=== PATIENT | female | born 1975 | race Caucasian/White ===

== ENCOUNTER 2016-08-15 23:43 | Observation (INO) ==
[2016-08-16 00:41] LABS: Bilirubin,Urine Negative (Negative); Blood,Urine Negative (Negative); Clarity,Urine Cloudy (Clear); Color,Urine Yellow (Yellow); Glucose,Urine (UA) Normal (Normal); Ketones,Urine Negative (Negative); Leukocyte Esterase,Urine Negative (Negative); Nitrite,Urine Negative (Negative); Protein,Urine Negative (Neg-Trace); Specific Gravity,Urine 1.028 (1.010-1.025); Urobilinogen,Urine Normal (Normal)
[2016-08-16 00:42] LABS: Bacteria,Urine Few per hpf (None-Few); Hyaline Casts,Urine None Seen per lpf (None-Few); RBC,Urine 0-3 per hpf (0-3); Squamous Epithelial Cell,Urine Many per lpf (None-Few)
[2016-08-16 01:26] LABS: Basophils # 0.1 K/mcL (0.0-0.2); Basophils % 0.7 %; Eosinophils # 0.3 K/mcL (0.0-0.6); Eosinophils % 2.4 %; Hematocrit 28.8 % (35.3-44.9); Hemoglobin 8.5 g/dL (11.5-15.4); Immature Granulocytes % 0.7 % (0-4); Lymphocytes # 3.9 K/mcL (0.6-4.6); Lymphocytes % 32.4 %; Mean Corpuscular HGB Conc 29.5 g/dL (31.6-35.5); Mean Corpuscular Hemoglobin 22.8 pg (28.0-33.3); Mean Corpuscular Volume 77.2 fL (83.0-100.0); Mean Platelet Volume 10.5 fL (9.4-12.4); Monocytes # 0.8 K/mcL (0.0-1.3); Monocytes % 6.5 %; Neutrophils # 6.9 K/mcL (1.6-8.9); Platelet Count 254 K/mcL (140-400); Red Blood Count 3.73 M/mcL (3.82-4.97); Red Cell Distribution Width 18.2 % (11.5-14.5); Segmented Neutrophils % 57.3 %
[2016-08-16 01:41] LABS: Alanine Aminotransferase 13 Units/L (0-55); Albumin 2.9 g/dL (3.5-5.0); Albumin/Globulin Ratio 0.8 (1.1-2.2); Alkaline Phosphatase 48 Units/L (38-126); Amylase 33 Units/L (25-125); Aspartate Amino Transferase 14 Units/L (5-34); BUN/Creatinine Ratio 32 (6-26); Bilirubin,Direct 0.1 mg/dL (0.0-0.5); Bilirubin,Total 0.1 mg/dL (0.2-1.2); Blood Urea Nitrogen 23 mg/dL (7-20); Calcium 8.9 mg/dL (8.6-10.8); Carbon Dioxide 25 mEq/L (19-29); Chloride 103 mEq/L (98-109); Globulin 3.6 g/dL (2.4-3.5); Glucose 126 mg/dL (70-99); Lipase 24 Units/L (8-78); Osmolality,Calculated 297 (280-300); Potassium 3.5 mEq/L (3.5-4.5); Sodium 141 mEq/L (136-145); Total Protein 6.5 g/dL (6.0-8.3); eGFR For African Americans > 60 (> 60); eGFR For Non-African Americans > 60 (> 60)
[2016-08-16] MEDS ORDERED: *HR* HYDROcodone/Acet 5/325 mg TABLET PO ONE (04:10)
--- NOTE | 2016-08-16 04:11 | Emergency Department Note ---
Disposition Clinical Impression: GI bleed, Dizziness Disposition: Admitted As Inpatient Condition: Good Instructions: Gastrointestinal Bleeding (ED) Referrals: NO,PCP [Primary Care Provider] - Forms: ED Satisfaction Letter Time of Disposition: 05:18 Abdominal Pain HPI - General Chief Complaint: ED GI Bleed Stated Complaint: belly pain Time Seen by Provider: 08/16/16 01:52 Source: patient Mode of arrival: private vehicle Limitations: no limitations Nursing Notes Reviewed: Yes Vital Signs Reviewed: Yes - History of Present Illness HPI Narrative: An extremely pleasant 41-year-old female patient presents to the emergency department with complaint of abdominal pain. Patient states that she has had intermittent abdominal pain for the last 2-3 days, and has also noticed dark/ black stools. Patient denies any known history of similar symptoms in the past. She does state that she currently takes approximately 600 mg of ibuprofen daily for chronic neck pain. She does not currently take any blood thinners. She denies any bright red blood per rectum. She denies any history of gastric ulcers. Patient's abdominal pain is epigastric in nature. She described it as aching. She denies any chest pain, shortness of breath. She does state that she has had some intermittent dizziness and lightheadedness. She denies any family history of colon cancer, she also denies having ever had a upper endoscopy or colonoscopy. Pt Subjective Complaint: abdominal pain, other (dark stool) Onset (ago): day(s) Consistency: intermittent Location: epigastric Pain Severity: moderate Pain Scale: 6 Quality: aching Radiation: none Migration to: no migration Improves with: nothing Worsens with: nothing Associated symptoms: Reports: denies other symptoms, melena. Denies: nausea, vomiting, fever, chills, constipation - Related Data Home Medications Medication Instructions Recorded Confirmed Baclofen [Lioresal] 10 mg PO HS 02/23/16 02/23/16 Duloxetine [Cymbalta] 30 mg PO DAILY 02/23/16 02/23/16 Ibuprofen [Motrin] 800 mg PO Q8HR 02/23/16 02/23/16 Oxycodone HCl/Acetaminophen 1 each PO TID 02/23/16 02/23/16 [Percocet 10-325 mg Tablet] Previous Rx's Medication Instructions Recorded Diclofenac Sodium [Voltaren] 50 mg PO Q8HR #30 tablet. 07/02/16 Allergies Allergy/AdvReac Type Severity Reaction Status Date / Time acetaminophen Allergy Hives Verified 02/23/16 14:28 [From Darvocet-N] pregabalin [From Lyrica] Allergy Rash Verified 02/23/16 14:28 propoxyphene Allergy Hives Verified 02/23/16 14:28 [From Darvocet-N] All systems ED: reviewed and negative except as stated. Constitutional: Denies: fever, chills Cardiovascular: Denies: chest pain, palpitations, dyspnea on exertion Respiratory: Denies: cough, dyspnea Gastrointestinal: Reports: abdominal pain, melena. Denies: nausea, vomiting Genitourinary: Denies: urgency, dysuria, frequency Musculoskeletal: Denies: back pain, neck pain Integumentary: Denies: rash, abrasion Neurological: Reports: other (Dizziness, lightheadedness.). Denies: headache Psychiatric: Denies: anxiety, depression, suicidal thoughts, homicidal thoughts Abdominal Pain PMH - Past Medical History Medical history: Reports: arthritis, asthma Female Surgical History: Reports: orthopedic, other Psychiatric history: Reports: no psych history - Social History Smoking status: Former smoker Alcohol use: Reports: none Drug use: Reports: none Physical Exam - General Limitations: no limitations General appearance: alert, in no apparent distress - Head Head exam: atraumatic, normocephalic, normal inspection - Eye Eye exam: Present: normal appearance, PERRL - Neck Neck exam: Present: normal inspection, full ROM, trachea midline - Chest Chest inspection: Present: normal inspection, symmetric chest wall rise - Respiratory Respiratory exam: Present: normal lung sounds bilaterally. Absent: respiratory distress - Cardiovascular Cardiovascular exam: Present: regular rate, normal rhythm, normal heart sounds - Abdominal Exam Abdominal exam: Present: soft, tenderness, normal bowel sounds Abdominal tenderness: Present: epigastrium, mild - Rectal Exam Rectal exam: Present: normal rectal tone, heme (+) stool, black stool, hemorrhoids, other (Performed at the bedside in the presence of natural resources specialist Pita. Patient tolerated the exam well.) - Extremities Exam Extremities exam: Present: normal inspection, full ROM. Absent: tenderness, pedal edema - Expanded Lower Extremity Exam Gait: observed and normal - Back Exam Back exam: Present: normal inspection, full ROM. Absent: tenderness - Neurological Exam Neurological exam: Present: alert, oriented X3 - Psychiatric Psychiatric exam: Present: normal affect, normal mood - Skin Skin exam: Present: warm, dry, intact, normal color Course Vital Signs Temperature 98.7 F 08/16/16 00:00 Pulse Rate 99 08/16/16 00:00 Respiratory Rate 18 08/16/16 00:00 Blood Pressure 117/65 08/16/16 00:00 O2 Sat by Pulse Oximetry 97 08/16/16 00:00 Temperature 98.7 F 08/16/16 00:00 Pulse Rate 99 08/16/16 05:32 Respiratory Rate 18 08/16/16 05:32 Blood Pressure 156/80 08/16/16 05:32 O2 Sat by Pulse Oximetry 97 08/16/16 05:32 Oxygen Delivery Oxygen Delivery Room Air Abdominal Pain - Medical Records Medical records reviewed: Yes I reviewed the patient's medical records. - Lab Data Lab results reviewed: Yes I reviewed the patient's lab results. Result diagrams: 08/16/16 01:20 08/16/16 01:20 Lab Results 08/15/16 08/16/16 08/16/16 Range/Units 23:52 01:20 01:20 WBC 12.0 H (4.3-11.1) K/mcL RBC 3.73 L (3.82-4.97) M/mcL Hgb 8.5 L (11.5-15.4) g/dL Hct 28.8 L (35.3-44.9) % MCV 77.2 L (83.0-100.0) fL MCH 22.8 L (28.0-33.3) pg MCHC 29.5 L (31.6-35.5) g/dL RDW 18.2 H (11.5-14.5) % Plt Count 254 (140-400) K/mcL MPV 10.5 (9.4-12.4) fL Immature Gran % 0.7 (0-4) % Seg Neutrophils % 57.3 % Lymphocytes % 32.4 % Monocytes % 6.5 % Eosinophils % 2.4 % Basophils % 0.7 % Neutrophils # 6.9 (1.6-8.9) K/mcL Lymphocytes # 3.9 (0.6-4.6) K/mcL Monocytes # 0.8 (0.0-1.3) K/mcL Eosinophils # 0.3 (0.0-0.6) K/mcL Basophils # 0.1 (0.0-0.2) K/mcL Sodium 141 (136-145) mEq/L Potassium 3.5 (3.5-4.5) mEq/L Chloride 103 (98-109) mEq/L Carbon Dioxide 25 (19-29) mEq/L BUN 23 H (7-20) mg/dL Creatinine 0.73 (0.57-1.11) mg/dL Est GFR ( Amer) > 60 (> 60) Est GFR (Non-Af Amer) > 60 (> 60) BUN/Creatinine Ratio 32 H (6-26) Glucose 126 H (70-99) mg/dL Calculated Osmolality 297 (280-300) Calcium 8.9 (8.6-10.8) mg/dL Total Bilirubin 0.1 L (0.2-1.2) mg/dL Direct Bilirubin 0.1 (0.0-0.5) mg/dL Indirect Bilirubin 0.0 (0.0-1.2) mg/dL AST 14 (5-34) Units/L ALT 13 (0-55) Units/L Alkaline Phosphatase 48 (38-126) Units/L Serum Total Protein 6.5 (6.0-8.3) g/dL Albumin 2.9 L (3.5-5.0) g/dL Globulin 3.6 H (2.4-3.5) g/dL Albumin/Globulin Ratio 0.8 L (1.1-2.2) Amylase 33 (25-125) Units/L Lipase 24 (8-78) Units/L Urine Color Yellow (Yellow) Urine Clarity Cloudy A (Clear) Urine pH 6.0 (5.0-8.0) pH Units Ur Specific [place] 1.028 H (1.010-1.025) Urine Protein Negative (Neg-Trace) mg/dL Urine Glucose (UA) Normal (Normal) mg/dL Urine Ketones Negative (Negative) mg/dL Urine Blood Negative (Negative) Urine Nitrite Negative (Negative) Urine Bilirubin Negative (Negative) Urine Urobilinogen Normal (Normal) mg/dL Ur Leukocyte Esterase Negative (Negative) Urine Microscopic RBC 0-3 (0-3) per hpf Urine Microscopic WBC 5-15 H (0-3) per hpf Ur Squamous Epith Cells Many H (None-Few) per lpf Urine Bacteria Few (None-Few) per hpf Hyaline Casts None Seen (None-Few) per lpf Ur Culture Indicated? YES A (NO) Stool Occult Blood (Negative) 08/16/16 Range/Units 04:30 WBC (4.3-11.1) K/mcL RBC (3.82-4.97) M/mcL Hgb (11.5-15.4) g/dL Hct (35.3-44.9) % MCV (83.0-100.0) fL MCH (28.0-33.3) pg MCHC (31.6-35.5) g/dL RDW (11.5-14.5) % Plt Count (140-400) K/mcL MPV (9.4-12.4) fL Immature Gran % (0-4) % Seg Neutrophils % % Lymphocytes % % Monocytes % % Eosinophils % % Basophils % % Neutrophils # (1.6-8.9) K/mcL Lymphocytes # (0.6-4.6) K/mcL Monocytes # (0.0-1.3) K/mcL Eosinophils # (0.0-0.6) K/mcL Basophils # (0.0-0.2) K/mcL Sodium (136-145) mEq/L Potassium (3.5-4.5) mEq/L Chloride (98-109) mEq/L Carbon Dioxide (19-29) mEq/L BUN (7-20) mg/dL Creatinine (0.57-1.11) mg/dL Est GFR ( Amer) (> 60) Est GFR (Non-Af Amer) (> 60) BUN/Creatinine Ratio (6-26) Glucose (70-99) mg/dL Calculated Osmolality (280-300) Calcium (8.6-10.8) mg/dL Total Bilirubin (0.2-1.2) mg/dL Direct Bilirubin (0.0-0.5) mg/dL Indirect Bilirubin (0.0-1.2) mg/dL AST (5-34) Units/L ALT (0-55) Units/L Alkaline Phosphatase (38-126) Units/L Serum Total Protein (6.0-8.3) g/dL Albumin (3.5-5.0) g/dL Globulin (2.4-3.5) g/dL Albumin/Globulin Ratio (1.1-2.2) Amylase (25-125) Units/L Lipase (8-78) Units/L Urine Color (Yellow) Urine Clarity (Clear) Urine pH (5.0-8.0) pH Units Ur Specific [place] (1.010-1.025) Urine Protein (Neg-Trace) mg/dL Urine Glucose (UA) (Normal) mg/dL Urine Ketones (Negative) mg/dL Urine Blood (Negative) Urine Nitrite (Negative) Urine Bilirubin (Negative) Urine Urobilinogen (Normal) mg/dL Ur Leukocyte Esterase (Negative) Urine Microscopic RBC (0-3) per hpf Urine Microscopic WBC (0-3) per hpf Ur Squamous Epith Cells (None-Few) per lpf Urine Bacteria (None-Few) per hpf Hyaline Casts (None-Few) per lpf Ur Culture Indicated? (NO) Stool Occult Blood Positive A (Negative)
[2016-08-16] MEDS ORDERED: Pantoprazole 40 MG VIAL IVP ONE (05:11)
--- NOTE | 2016-08-16 05:13 | Emergency Department Note ---
START Narrative - START START: I examined this patient and my medical decision-making was reviewed with the STORAGE BATTERY INSPECTOR/PA/Advanced Practice Nurse/Resident Physician. I agree with the documented findings, disposition and treatment plan as described except to the extent set forth below.
[2016-08-16] MEDS ORDERED: 0.9 % Sodium Chloride Mini Bag 100 ML ONE (06:30)
[2016-08-16] MEDS: Pantoprazole 40 MG in 0.9 % Sodium Chloride Mini Bag 100 ML IVC SCH ×4 (06:33→22:02)
[2016-08-16] MEDS ORDERED: Naloxone 0.4 MG/ML INJ IVP PRN (07:46)
[2016-08-16] MEDS ORDERED: Ondansetron 4 MG/2 ML VIAL IVP PRN (07:46)
[2016-08-16] MEDS ORDERED: *HR* Morphine 2 MG/ML SYRINGE IVP PRN (07:46)
[2016-08-16] MEDS ORDERED: *HR* HYDROcodone/Acet 5/325 mg TABLET PO PRN (07:46)
[2016-08-16 08:15] LABS: Basophils # 0.1 K/mcL (0.0-0.2); Basophils % 0.7 %; Eosinophils # 0.2 K/mcL (0.0-0.6); Eosinophils % 2.2 %; Hematocrit 24.7 % (35.3-44.9); Hemoglobin 7.5 g/dL (11.5-15.4); Immature Granulocytes % 0.8 % (0-4); Lymphocytes # 2.8 K/mcL (0.6-4.6); Lymphocytes % 29.7 %; Mean Corpuscular HGB Conc 30.4 g/dL (31.6-35.5); Mean Corpuscular Hemoglobin 23.4 pg (28.0-33.3); Mean Corpuscular Volume 76.9 fL (83.0-100.0); Monocytes # 0.6 K/mcL (0.0-1.3); Monocytes % 6.5 %; Neutrophils # 5.8 K/mcL (1.6-8.9); Platelet Count 228 K/mcL (140-400); Red Blood Count 3.21 M/mcL (3.82-4.97); Red Cell Distribution Width 18.6 % (11.5-14.5); Segmented Neutrophils % 60.1 %
--- NOTE | 2016-08-16 08:19 | Internal Med History&Physical ---
Date of Encounter: 08/16/16 Time of Encounter: 08:17 Assessment and Plan (1) GI bleed Current visit: Yes Status: Acute Possibly secondary to NSAID gastritis, possibly bleeding ulcer Abdomen is not acute Discontinue NSAIDs Continue protonix IVF at 100 cc/hr NPO GI consult Transfuse 2 units RBCs High risk due to ongoing GI bleed and need for emergent endoscopy Qualifiers: GI bleed type/associated pathology: melena Qualified Code(s): K92.1 - Melena (2) Symptomatic anemia Current visit: Yes Status: Acute Possibly secondary to UGIB from NSAID use Baseline Hb unknown However, Hb on presentation is 8.5, with leukocytosis possibly from dehydration , or reactionary from acute bleed PLT WNL Rpt Hb Transfuse RBCs (3) Chronic neck pain Current visit: Yes Status: Chronic Hold/Discontinue NSAIDs Continue [place] (4) Morbid obesity with BMI of 45.0-49.9, adult Current visit: Yes Status: Chronic Lifestyle modification Check A1C, patient has hyperglycemia (5) DVT prophylaxis Current visit: Yes Status: Acute Actively bleeding Heparin is contraindicated SCDs Bed rest for now, ambulate prn after endoscopy (6) Asthma Current visit: Yes Status: Chronic Albuterol nebs prn No symptoms at this time Qualifiers: Asthma severity: mild intermittent Asthma complication type: uncomplicated Qualified Code(s): J45.20 - Mild intermittent asthma, uncomplicated Internal Medicine - H&P: HPI Chief complaint: Dizziness, Black stools Admitted From: Home Plans for Post Hospital Care: Home History of present illness: Ms. Guallpa is a 41 year old female with PMH of Mild asthma, Chronic neck pain who presented to the ER with complains of epigastric discomfort which started 3 days prior to presentation She reports moderate 5-6/10 pressure like/dull pain in the epigastric region, non-radiating, aggravated by food intake, with no known relieving factors. She denies associated vomiting but does have nausea. Reports after the onset of abdominal pain she started to have dark tarry stools. She had approximately 10 episodes yesterday. She has had one episode today. She also has dizziness, she denies chest pain she denies palpitation she denies leg swelling she reports easy fatigability. She has a family doctor, last visit was a month ago and she reports blood work was done and the only abnormality was said to be hyperglycemia. She does not know her baseline hemoglobin. She denies history of bleeding diastasis, her menstrual period is not heavy. She is unaware of family history of bleeding problems. She was taking 600 mg of ibuprofen every day for her chronic neck pain and also takes albuterol prn shortness of breath. Medical history is as detected. She has had left hand tendon surgery and tubal ligation. No bleeding problems at that time. In the ER, patient found to have normal blood pressure and one episode of tachycardia. Hemoglobin on presentation was 8.5 as well as leukocytosis of 12, 000 and normal platelets. Comprehensive metabolic panel is unremarkable, except mild azotemia. Urine analysis with no blood. FOBT positive Past Med Surg Social Fam HX - Past Medical History Medical history: arthritis, asthma Psychiatric history: no psych history - Past Surgical History Surgical History: other (tubal ligation) - Social History Smoking Status: Former smoker Smokeless Tobacco Status: No Alcohol use: none Drug use: none Internal Medicine - H&P: Meds Duloxetine [Cymbalta] 30 mg PO QAM 02/23/16 [History] Oxycodone HCl/Acetaminophen [Percocet 10-325 mg Tablet] 1 each PO QID PRN [History] Baclofen [Lioresal] 10 mg PO HS PRN 08/16/16 [History] Gabapentin [Neurontin] 100 mg PO TID PRN 08/16/16 [History] Ibuprofen [Motrin] 600 mg PO TID PRN 08/16/16 [History] Allergies acetaminophen [From Darvocet-N] Allergy (Verified 08/16/16 06:09) Hives pregabalin [From Lyrica] Allergy (Verified 08/16/16 06:09) Rash propoxyphene [From Darvocet-N] Allergy (Verified 08/16/16 06:09) Hives All Systems PM: A 10-system review of systems was performed and is negative for pertinent findings except as documented above in the HPI. - Constitutional Constitutional: as per HPI - EENT Eyes: as per HPI Ears: as per HPI Nose, mouth and throat: as per HPI - Cardiovascular Cardiovascular ROS IM: no chest pain, no diaphoresis, no dyspnea, no lightheadedness, no palpitations, no syncope - Respiratory Respiratory: no cough, no dyspnea, no wheezing, no excessive phlegm production - Gastrointestinal Gastrointestinal: as per HPI - Genitourinary Genitourinary: no change in urinary stream, no dysuria, no flank pain, no hematuria Menstruation: as per HPI - Musculoskeletal Musculoskeletal ROS IM: as per HPI, neck pain - Integumentary Integumentary IM: no rash, no unusual bruising - Neurological Neurological ROS: no confusion, no convulsions, no focal weakness, no numbness, no tingling, no tremor(s) - Hematologic/Lymphatic Hematologic/Lymphatic: no easy bruising - Constitutional Vitals: Temp Pulse Resp BP Pulse Ox 98.0 F 92 16 128/78 97 08/16/16 07:53 08/16/16 07:53 08/16/16 07:53 08/16/16 07:53 08/16/16 07:53 General appearance: Present: A&O X 3, morbidly obese, pleasant, no acute distress, answers questions appropriately - Head Head exam: Present: atraumatic - Eye Eye exam: Present: PERRL, sclera anicteric - ENT ENT exam: Present: mucous membranes moist - Neck Neck exam general surgery: Present: normal inspection - Respiratory Respiratory exam: Present: CTAB. Absent: rhonchi, wheezes, tachypnea - Cardiovascular Cardiovascular exam: Present: RRR, +S1, +S2. Absent: gallop, JVD, systolic murmur - GI/Abdominal GI/Abdominal exam: Present: normal bowel sounds, soft, tenderness (Mild tenderness epigastric region), no peritoneal signs. Absent: mass - Extremities Exam Extremities exam: Present: warm, radial pulses palpable and symetrical. Absent : calf tenderness, cyanotic, pedal edema - Neurological Exam Neurological exam: Present: alert, CN II-XII intact, oriented X3, no focal deficits. Absent: pronater drift, facial droop, speech deficit - Skin Skin exam: Present: dry. Absent: rash Internal Med - H&P Results - Labs CBC & Chem 7: 08/16/16 08:04 08/16/16 01:20 Labs: Short CBC 08/16/16 Range/Units 08:04 WBC 9.6 (4.3-11.1) K/mcL Hgb 7.5 L (11.5-15.4) g/dL Hct 24.7 L (35.3-44.9) % Plt Count 228 (140-400) K/mcL Neutrophils # 5.8 (1.6-8.9) K/mcL
[2016-08-16 08:41] LABS: Hemoglobin A1C 5.5 %
[2016-08-16 09:00] LABS: % Iron Saturation 5 % (15-50); Iron 21 mcg/dL (50-170); Transferrin 307 mg/dL (180-382)
[2016-08-16 09:20] LABS: Ferritin 8 ng/ml (5-204)
[2016-08-16] MEDS ORDERED: 0.9 % Sodium Chloride 250 ML ONE ×2 (10:49→14:03)
--- NOTE | 2016-08-16 11:59 | Gastroenterology Consult Note ---
<Chapo Smith - Last Filed: 08/16/16 11:57> Date of Encounter: 08/16/16 Time of Encounter: 11:00 - Assessment and plan (1) Melena Current Visit: Yes Status: Acute Assessment and plan: Likely secondary to NSAID usage. Melena started 3 days ago. Pt is taking ibuprofen 600 mg daily. Plan for EGD today to r/o esophagitis, gastritis, duodenitis, PUD, MW tear, or AVM. If EGD negative, plan for colonoscopy tomorrow. (2) GI bleed Current Visit: Yes Status: Acute Qualifiers: GI bleed type/associated pathology: melena Qualified Code(s): K92.1 - Melena (3) Symptomatic anemia Current Visit: Yes Status: Acute Assessment and plan: Secondary to GI bleed. Continue to monitor CBC and transfuse PRBC as needed. (4) NSAID long-term use Current Visit: Yes Status: Acute Assessment and plan: Pt using ibuprofen 600 mg daily. Encouraged pt to decrease amount of NSAIDs she uses. - Time Spent With Patient Total time spent is greater than 50% in coordination of care (as documented) at patient's floor/unit and/or counseling patient: GI History of Present Illness - Data of Consult Patient: new to practice Consult date: 08/16/16 Requesting Physician: Terra Carolina - Consult Narrative Reason for consult: anemia History of present illness: Ms. Guallpa is a 41 year old female with PMHx of arthritis, asthma, chronic neck pain who presented to the ED with epigastric pain that started 3 days prior to presentation. The pain is aggravated with food intake and no alleviating factors. She admits to nausea but denies vomiting. She reports dark tarry stools, and states she had 10 episodes the day prior to admission. She also reports some dizziness, fatigue. She denies chest pain, palpitations, heavy menstrual period. Hgb on admission was 8.5 and this AM 7.5 with MCV 76.9. Pt states she is using ibuprofen 600 mg daily. Procedures: None NSAIDs: Ibuprofen Anticoagulation: None Past Med Surg Social Fam HX - Past Medical History Medical history: arthritis, asthma Psychiatric history: no psych history - Past Surgical History Surgical History: other - Social History Smoking Status: Former smoker Smokeless Tobacco Status: No Alcohol use: none Drug use: none - Family History Father Hx Family Cancer: Yes ([place]) - Gastrointestinal Gastrointestinal: Present: as per HPI - Constitutional Constitutional: as per HPI - EENT Eyes: as per HPI Ears: Present: as per HPI Nose, mouth and throat: Present: as per HPI - Cardiovascular Cardiovascular ROS: Present: as per HPI - Respiratory Respiratory IM: Present: as per HPI - Genitourinary Genitourinary: Absent: change in color, Urinary frequency - Neurological ROS Neurological GI: Present: as per HPI - Hematologic/Lymphatic Hematologic/Lymphatic pediatric: Present: as per HPI - Musculoskeletal Musculoskeletal ROS GI: Present: as per HPI - Integumentary Integumentary GI: Present: as per HPI - Psychiatric ROS Psychiatric GI: Present: as per HPI - Endocrine Endocrine IM: Present: as per HPI - Constitutional Vitals: Temp Pulse Resp BP Pulse Ox 97.8 F 100 14 119/74 96 08/16/16 11:14 08/16/16 11:14 08/16/16 11:14 08/16/16 11:14 08/16/16 10:59 General appearance: Present: cooperative, A&O X 3, no acute distress, answers questions appropriately - Head Head exam: Present: atraumatic, normocephalic - Eye Eye exam: Present: normal appearance, sclera anicteric - ENT ENT exam: Present: mucous membranes dry - Neck Neck exam general surgery: Present: normal inspection, trachea midline - Respiratory Respiratory exam: Present: CTAB. Absent: rales, rhonchi, wheezes - Cardiovascular Cardiovascular exam: Present: RRR, +S1, +S2 - GI/Abdominal GI/Abdominal exam: Present: soft, no peritoneal signs. Absent: distended, firm , guarding, tenderness - Rectal Rectal exam: Present: deferred - Extremities Exam Extremities exam: Present: warm - Neurological Exam Neurological exam: Present: no focal deficits - Psychiatric Psychiatric exam: Present: normal affect, normal mood - Skin Skin exam: Present: dry, intact, normal color, warm Results - Labs CBC & Chem 7: 08/16/16 08:04 08/16/16 01:20 Labs: Last Result Calcium 8.9 mg/dL (8.6-10.8) 08/16/16 01:20 Iron 21 mcg/dL (50-170) L 08/16/16 01:20 % Saturation 5 % (15-50) L 08/16/16 01:20 Transferrin 307 mg/dL (180-382) 08/16/16 01:20 Ferritin 8 ng/ml (5-204) 08/16/16 01:20 Stool Occult Blood Positive (Negative) A 08/16/16 04:30 Entire Visit Hgb 7.5 g/dL (11.5-15.4) L 08/16/16 08:04 Hct 24.7 % (35.3-44.9) L 08/16/16 08:04 Ferritin 8 ng/ml (5-204) 08/16/16 01:20 Total Bilirubin 0.1 mg/dL (0.2-1.2) L 08/16/16 01:20 AST 14 Units/L (5-34) 08/16/16 01:20 ALT 13 Units/L (0-55) 08/16/16 01:20 Amylase 33 Units/L (25-125) 08/16/16 01:20 Lipase 24 Units/L (8-78) 08/16/16 01:20 Consult Discharge Plan - Plan Referrals: NO,PCP [Primary Care Provider] - <Francine Downs - Last Filed: 08/16/16 12:52> Date of Encounter: 08/16/16 - Time Spent With Patient Total time spent is greater than 50% in coordination of care (as documented) at patient's floor/unit and/or counseling patient: GI History of Present Illness - Data of Consult Requesting Physician: Terra Carolina - Consult Narrative History of present illness: Ms. Guallpa is a 41 year old female - Constitutional Vitals: Temp Pulse Resp BP Pulse Ox 97.8 F 98 16 117/78 96 08/16/16 11:54 08/16/16 11:54 08/16/16 11:54 08/16/16 11:54 08/16/16 11:54 Results - Labs CBC & Chem 7: 08/16/16 08:04 08/16/16 01:20 Labs: Last Result Calcium 8.9 mg/dL (8.6-10.8) 08/16/16 01:20 Iron 21 mcg/dL (50-170) L 08/16/16 01:20 % Saturation 5 % (15-50) L 08/16/16 01:20 Transferrin 307 mg/dL (180-382) 08/16/16 01:20 Ferritin 8 ng/ml (5-204) 08/16/16 01:20 Stool Occult Blood Positive (Negative) A 08/16/16 04:30 Entire Visit Hgb 7.5 g/dL (11.5-15.4) L 08/16/16 08:04 Hct 24.7 % (35.3-44.9) L 08/16/16 08:04 Ferritin 8 ng/ml (5-204) 08/16/16 01:20 Total Bilirubin 0.1 mg/dL (0.2-1.2) L 08/16/16 01:20 AST 14 Units/L (5-34) 08/16/16 01:20 ALT 13 Units/L (0-55) 08/16/16 01:20 Amylase 33 Units/L (25-125) 08/16/16 01:20 Lipase 24 Units/L (8-78) 08/16/16 01:20 - Attending Attestation I examined this patient and my medical decision-making was reviewed with the GEAR ROLLER/PA/Advanced Practice Nurse/Resident Physician. I agree with the documented findings, disposition and treatment plan as described except to the extent set forth below.
[2016-08-16] MEDS ORDERED: *HR* FentaNYL (PF) 100 MCG/2 ML VIAL ONE (14:29)
[2016-08-16] MEDS ORDERED: *HR* Midazolam HCl 5 MG/5 ML VIAL IVP ONE (14:29)
[2016-08-16] MEDS: *HR* Midazolam HCl 5 MG/5 ML VIAL IVP PRN ×3 (14:41→14:45)
[2016-08-16] MEDS: *HR* FentaNYL (PF) 100 MCG/2 ML VIAL IVP PRN ×3 (14:41→14:45)
[2016-08-16] MEDS ORDERED: Simethicone 40 MG/0.6 ML MLS IR ONE (14:45)
[2016-08-16] MEDS ORDERED: Tetracaine/Benzocaine/Butamben 200MG/SPRAY (100SPY/BOT) MM ONE (14:45)
--- NOTE | 2016-08-16 14:45 | Pre-Sedation Evaluation ---
Pre-sedation evaluation - Pre-sedation checklist Date of procedure: 08/16/16 Procedure: EEG Recent Vitals: Last Vital Signs Temp 97.6 F 08/16/16 14:42 Pulse 88 08/16/16 14:42 Resp 16 08/16/16 14:42 BP 159/84 08/16/16 14:42 Pulse Ox 96 08/16/16 14:42 H&P (including ROS) documented in medical record: Yes Previous reaction to sedatives/anesthetics: No Dietary Status: No solid food in preceding 4 hrs and no liquid in preceding 2 hrs ASA Classification *see protocol: CLASS II-Mild systemic disease, CLASS III- Severe systemic disease Plan of Care: Pt appropriate candidate for procedure/moderate/conscious sedation , Risks/benefits of procedure/sedation discussed w/ patient/family
[2016-08-16] MEDS: 0.9 % Sodium Chloride 1,000 ML IVC SCH (17:04)
[2016-08-16] MEDS: *HR* OxyCODONE/APAP 10/325 TABLET PO PRN (20:22)
[2016-08-16] MEDS: Sucralfate 1 GM TABLET PO SCH (21:59)
[2016-08-17] MEDS: 0.9 % Sodium Chloride 1,000 ML IVC SCH ×2 (03:11→14:34)
[2016-08-17] MEDS: Pantoprazole 40 MG in 0.9 % Sodium Chloride Mini Bag 100 ML IVC SCH ×4 (03:12→21:30)
[2016-08-17] MEDS: *HR* OxyCODONE/APAP 10/325 TABLET PO PRN ×4 (03:16→21:33)
[2016-08-17 06:05] LABS: Basophils # 0.1 K/mcL (0.0-0.2); Basophils % 0.6 %; Eosinophils # 0.3 K/mcL (0.0-0.6); Eosinophils % 3.9 %; Hematocrit 27.3 % (35.3-44.9); Hemoglobin 8.3 g/dL (11.5-15.4); Immature Granulocytes % 0.7 % (0-4); Lymphocytes # 2.7 K/mcL (0.6-4.6); Lymphocytes % 31.1 %; Mean Corpuscular HGB Conc 30.4 g/dL (31.6-35.5); Mean Corpuscular Hemoglobin 24.4 pg (28.0-33.3); Mean Corpuscular Volume 80.3 fL (83.0-100.0); Mean Platelet Volume 11.9 fL (9.4-12.4); Monocytes # 0.7 K/mcL (0.0-1.3); Monocytes % 7.4 %; Platelet Count 212 K/mcL (140-400); Red Cell Distribution Width 18.5 % (11.5-14.5); Segmented Neutrophils % 56.3 %
[2016-08-17 06:36] LABS: Alanine Aminotransferase 13 Units/L (0-55); Albumin 2.6 g/dL (3.5-5.0); Albumin/Globulin Ratio 0.8 (1.1-2.2); Alkaline Phosphatase 42 Units/L (38-126); Aspartate Amino Transferase 13 Units/L (5-34); BUN/Creatinine Ratio 25 (6-26); Bilirubin,Total 0.4 mg/dL (0.2-1.2); Blood Urea Nitrogen 17 mg/dL (7-20); Calcium 8.1 mg/dL (8.6-10.8); Carbon Dioxide 25 mEq/L (19-29); Chloride 106 mEq/L (98-109); Globulin 3.2 g/dL (2.4-3.5); Glucose 93 mg/dL (70-99); Osmolality,Calculated 291 (280-300); Potassium 3.8 mEq/L (3.5-4.5); Sodium 140 mEq/L (136-145); Total Protein 5.8 g/dL (6.0-8.3); eGFR For African Americans > 60 (> 60); eGFR For Non-African Americans > 60 (> 60)
[2016-08-17] MEDS: Sucralfate 1 GM TABLET PO SCH ×3 (08:45→21:34)
--- NOTE | 2016-08-17 15:19 | Gastroenterology Progress Note ---
Date of Encounter: 08/17/16 Time of Encounter: 11:00 - Assessment and plan (1) Melena Current Visit: Yes Status: Acute Assessment and plan: EGD with non-bleeding gastric ulcer with visible vessel. Continue PPI drip today. Complete 2 month course of Carafate TID. Repeat EGD in 2-3 months for surveillance. Increase to full liquid diet. (2) GI bleed Current Visit: Yes Status: Acute Qualifiers: GI bleed type/associated pathology: melena Qualified Code(s): K92.1 - Melena (3) Symptomatic anemia Current Visit: Yes Status: Acute Assessment and plan: Secondary to GI bleed. Continue to monitor CBC and transfuse PRBC as needed. (4) NSAID long-term use Current Visit: Yes Status: Acute Assessment and plan: Pt using ibuprofen 600 mg daily. Encouraged pt to decrease amount of NSAIDs she uses. - Time Spent With Patient Total time spent is greater than 50% in coordination of care (as documented) at patient's floor/unit and/or counseling patient: - Subjective Interval history: Pt continues to complain of abdominal pain. EGD completed yesterday, with large gastric ulcer. - Constitutional Vitals: Temp Pulse Resp BP Pulse Ox 98.1 F 93 17 113/74 98 08/17/16 13:59 08/17/16 13:59 08/17/16 13:59 08/17/16 13:59 08/17/16 13:59 General appearance: Present: cooperative, A&O X 3, no acute distress, answers questions appropriately - Head Head exam: Present: atraumatic, normocephalic - Eye Eye exam: Present: normal appearance, sclera anicteric - ENT ENT exam: Present: mucous membranes moist - Neck Neck exam general surgery: Present: normal inspection, trachea midline - Respiratory Respiratory exam: Present: CTAB. Absent: rales, rhonchi - Cardiovascular Cardiovascular exam: Present: RRR, +S1, +S2 - GI/Abdominal GI/Abdominal exam: Present: soft, tenderness (epigastric), no peritoneal signs. Absent: distended, firm, guarding - Rectal Rectal exam: Present: deferred - Extremities Exam Extremities exam: Present: warm - Neurological Exam Neurological exam: Present: no focal deficits - Psychiatric Psychiatric exam: Present: normal affect, normal mood - Skin Skin exam: Present: dry, intact, normal color, warm Results - Labs CBC & Chem 7: 08/17/16 05:21 08/17/16 05:21 Labs: Last Result Calcium 8.1 mg/dL (8.6-10.8) L 08/17/16 05:21 Iron 21 mcg/dL (50-170) L 08/16/16 01:20 % Saturation 5 % (15-50) L 08/16/16 01:20 Transferrin 307 mg/dL (180-382) 08/16/16 01:20 Ferritin 8 ng/ml (5-204) 08/16/16 01:20 Stool Occult Blood Positive (Negative) A 08/16/16 04:30 Entire Visit Hgb 8.3 g/dL (11.5-15.4) L 08/17/16 05:21 Hct 27.3 % (35.3-44.9) L 08/17/16 05:21 Ferritin 8 ng/ml (5-204) 08/16/16 01:20 Total Bilirubin 0.4 mg/dL (0.2-1.2) 08/17/16 05:21 AST 13 Units/L (5-34) 08/17/16 05:21 ALT 13 Units/L (0-55) 08/17/16 05:21 Amylase 33 Units/L (25-125) 08/16/16 01:20 Lipase 24 Units/L (8-78) 08/16/16 01:20 Consult Discharge Plan - Plan Referrals: Ruby Child MD [Non-Partnered Physician] - 08/24/16 11:40 am
--- NOTE | 2016-08-17 17:16 | Internal Med Progress Note ---
Date of Encounter: 08/17/16 Time of Encounter: 12:30 - Assessment and plan (1) GI bleed Current Visit: Yes Status: Resolved Assessment and plan: GI on board. She had an EGD which revealed possible bleeding ulcer. She has remained hemodynamically stable status post transfusion of 2 units of packed red blood cells. She was started on a PPI drip per GI that needs to be continued until at least tomorrow. She has been educated to refrain from using NSAIDs. She is tolerating a full liquid diet. Possible discharge tomorrow pending clinical outcomes. Qualifiers: GI bleed type/associated pathology: melena Qualified Code(s): K92.1 - Melena (2) Dizziness Current Visit: Yes Status: Resolved (3) Symptomatic anemia Current Visit: Yes Status: Resolved Assessment and plan: Consistent with acute blood loss anemia secondary to likely GI bleed. Status post transfusion of 2 units packed red blood cells. She remains hemodynamically stable, will observe overnight and possibly discharge tomorrow pending clinical outcomes. (4) Acute blood loss anemia Current Visit: Yes Status: Resolved (5) Morbid obesity with BMI of 45.0-49.9, adult Current Visit: Yes Status: Chronic (6) Chronic neck pain Current Visit: Yes Status: Chronic (7) DVT prophylaxis Current Visit: Yes Status: Acute Assessment and plan: IPC's ordered; pharmacologic prophylaxis contraindicated secondary to GI bleed resulting in a blood transfusion. (8) Asthma Current Visit: Yes Status: Chronic Assessment and plan: No acute exacerbation. Patient denies shortness of breath above her norm. Qualifiers: Asthma severity: mild intermittent Asthma complication type: uncomplicated Qualified Code(s): J45.20 - Mild intermittent asthma, uncomplicated (9) Melena Current Visit: Yes Status: Acute (10) NSAID long-term use Current Visit: Yes Status: Acute - Subjective Interval history: Patient seen and examined. On examination, patient sitting upright in bed. She is alert and or to 3 and states she still has pain but it is controlled. She is endorsing a normal appetite. She states she wants to go home. - Constitutional Vitals: Temp Pulse Resp BP Pulse Ox 98.1 F 93 17 113/74 98 08/17/16 13:59 08/17/16 13:59 08/17/16 13:59 08/17/16 13:59 08/17/16 13:59 General appearance: Present: A&O X 3, morbidly obese, pleasant, no acute distress, answers questions appropriately - Head Head exam: Present: atraumatic, normocephalic - Eye Eye exam: Present: PERRL, conjuntiva pink, sclera anicteric Pupils: Present: PERRL - Neck Neck exam general surgery: Present: supple, trachea midline. Absent: lymphadenopathy - Respiratory Respiratory exam: Present: CTAB. Absent: accessory muscle use, rales, respiratory distress, rhonchi, wheezes - Cardiovascular Cardiovascular exam: Present: RRR, +S1, +S2. Absent: diastolic murmur, gallop, rubs, systolic murmur - GI/Abdominal GI/Abdominal exam: Present: normal bowel sounds, soft, tenderness (epigastric.) , no peritoneal signs. Absent: distended - Extremities Exam Extremities exam: Present: warm, radial pulses palpable and symetrical. Absent : calf tenderness, cyanotic, pedal edema - Neurological Exam Neurological exam: Present: alert, CN II-XII intact, normal gait, oriented X3, no focal deficits, strengths equal and symetr throughout. Absent: pronater drift, facial droop, speech deficit - Skin Skin exam: Present: dry, intact, normal color, warm Internal Medicine: Result - Labs CBC & Chem 7: 08/17/16 05:21 08/17/16 05:21 Labs: Short CBC 08/17/16 Range/Units 05:21 WBC 8.8 (4.3-11.1) K/mcL Hgb 8.3 L (11.5-15.4) g/dL Hct 27.3 L (35.3-44.9) % Plt Count 212 (140-400) K/mcL Neutrophils # 5.0 (1.6-8.9) K/mcL BMP 08/17/16 05:21 Sodium 140 Potassium 3.8 Chloride 106 Carbon Dioxide 25 BUN 17 Creatinine 0.69 Glucose 93 Calcium 8.1 L Liver Function 08/17/16 Range/Units 05:21 Total Bilirubin 0.4 (0.2-1.2) mg/dL AST 13 (5-34) Units/L ALT 13 (0-55) Units/L Alkaline Phosphatase 42 (38-126) Units/L Albumin 2.6 L (3.5-5.0) g/dL Consult Discharge Plan - Plan Referrals: Ruby Child MD [Non-Partnered Physician] - 08/24/16 11:40 am
[2016-08-18] MEDS: Acetaminophen 325 MG TABLET PO PRN ×2 (01:32→09:21)
[2016-08-18] MEDS: 0.9 % Sodium Chloride 1,000 ML IVC SCH (01:33)
[2016-08-18] MEDS: Pantoprazole 40 MG in 0.9 % Sodium Chloride Mini Bag 100 ML IVC SCH ×2 (02:40→09:20)
[2016-08-18] MEDS: *HR* OxyCODONE/APAP 10/325 TABLET PO PRN ×2 (04:06→11:23)
[2016-08-18 05:49] LABS: Basophils # 0.1 K/mcL (0.0-0.2); Basophils % 0.8 %; Eosinophils # 0.4 K/mcL (0.0-0.6); Eosinophils % 4.1 %; Hematocrit 26.7 % (35.3-44.9); Immature Granulocytes % 0.4 % (0-4); Lymphocytes # 2.8 K/mcL (0.6-4.6); Lymphocytes % 30.9 %; Mean Corpuscular Hemoglobin 24.4 pg (28.0-33.3); Mean Corpuscular Volume 81.4 fL (83.0-100.0); Mean Platelet Volume 11.5 fL (9.4-12.4); Monocytes # 0.7 K/mcL (0.0-1.3); Monocytes % 7.2 %; Neutrophils # 5.1 K/mcL (1.6-8.9); Platelet Count 224 K/mcL (140-400); Red Blood Count 3.28 M/mcL (3.82-4.97); Segmented Neutrophils % 56.6 %
[2016-08-18] MEDS: Sucralfate 1 GM TABLET PO SCH (09:20)
[2016-08-18 11:01] VITALS: BP 112/67
--- NOTE | 2016-08-18 13:07 | Discharge Summary ---
Date of Encounter: 08/18/16 Time of Encounter: 10:30 - Discharge Diagnosis (1) GI bleed Priority: Primary Status: Resolved Comments: She remained hemodynamically stable after her EGD. Qualifiers: GI bleed type/associated pathology: melena Qualified Code(s): K92.1 - Melena (2) Dizziness Priority: Primary Status: Resolved (3) Symptomatic anemia Priority: Primary Status: Resolved (4) Acute blood loss anemia Priority: Primary Status: Resolved (5) Morbid obesity with BMI of 45.0-49.9, adult Priority: Secondary Status: Chronic (6) Chronic neck pain Priority: Secondary Status: Chronic (7) DVT prophylaxis Priority: Primary Status: Acute Comments: IPC's ordered; pharmacologic prophylaxis contraindicated secondary to GI bleed resulting in a blood transfusion. (8) Asthma Priority: Secondary Status: Chronic Comments: No acute exacerbation. Patient denies shortness of breath above her normal throughout this admission. Qualifiers: Asthma severity: mild intermittent Asthma complication type: uncomplicated Qualified Code(s): J45.20 - Mild intermittent asthma, uncomplicated (9) Melena Priority: Primary Status: Resolved (10) NSAID long-term use Priority: Primary Status: Resolved - Discharge Medications Prescriptions: Ondansetron ODT [Zofran ODT] 4 mg SL Q6HR PRN #12 tab.rapdis PRN Reason: Nausea And Vomiting Omeprazole [PriLOSEC] 40 mg PO DAILY #30 cap Sucralfate [Carafate] 1 gm PO TID #180 tablet Home Medications: Duloxetine [Cymbalta] 30 mg PO QAM 02/23/16 [History] Oxycodone HCl/Acetaminophen [Percocet 10-325 mg Tablet] 1 each PO QID PRN [History] Baclofen [Lioresal] 10 mg PO HS PRN 08/16/16 [History] Gabapentin [Neurontin] 100 mg PO TID PRN 08/16/16 [History] Omeprazole [PriLOSEC] 40 mg PO DAILY #30 cap 08/18/16 [Rx] Ondansetron ODT [Zofran ODT] 4 mg SL Q6HR PRN #12 tab.rapdis 08/18/16 [Rx] Sucralfate [Carafate] 1 gm PO TID #180 tablet 08/18/16 [Rx] Allergies/Adverse Reactions: Allergies acetaminophen [From Darvocet-N] Allergy (Verified 08/16/16 10:05) Hives pregabalin [From Lyrica] Allergy (Verified 08/16/16 10:05) Rash propoxyphene [From Darvocet-N] Allergy (Verified 08/16/16 10:05) Hives Date of admission: 08/16/16 06:00 Primary care physician: PCP NO Consults: 08/16/16 08:12 Consult to Gastroenterology [CONS] Stat Consulting Provider: Gastroenterology Lennie Reason for Consult: Suspected UGIB Call Completed: Yes Discharging clinician: Terra Paris Anticipated date of discharge: 08/18/16 - Patient Status Disposition: Home, Self-Care Condition: Fair Functional capacity at discharge: independent ambulation Overall status at discharge: patient is progressing back to baseline - Discharge Instructions Instructions: Gastrointestinal Bleeding (GEN), Rectal Bleeding (GEN) Follow Up With: Ruby Child MD [Non-Partnered Physician] - 08/24/16 11:40 am Additional Instructions: Follow-up with her primary care provider as scheduled, follow-up with GI in 2-3 weeks - Diet and Activity Activity: increase activity as tolerated Diet: low fat, low cholesterol, low salt diet Hospital course: Ms. Guallpa is a 41 year old female with past medical history of asthma, chronic neck pain, morbid obesity with BMI of 50. Patient presented to the emergency department chief complaint three-day history of epigastric pain. Patient stated her pain is located in the epigastric region, did not radiate, and was aggravated with food intake and not relieved with anything. Patient endorsed nausea but no vomiting. Patient also noticed that she started to have dark tarry stools after the onset of her abdominal pain. Patient states she is having approximately 10 episodes on the day prior to presentation. Patient also endorsed dizziness and easy fatigability. Workup in the emergency department notable for anemia the patient was admitted to the hospitalist service for further evaluation and management. She was transfused with 2 units of packed red blood cells. GI was brought on board who performed an EGD which revealed a nonbleeding gastric ulcer with a visible vessel. Patient was started on a PPI infusion and was observed for 2 days after her EGD. She remained hemodynamically stable and did not require any further transfusions. Her dizziness and easy fatigability had subsided. She was instructed not to use NSAIDs. She was able to tolerate a regular diet prior to discharge. She was discharged home in stable condition with close outpatient follow-up recommended. She was discharged with a oral PPI and Carafate 2 months and will follow up outpatient with GI. EGD impression: Normal esophagus. Nonbleeding gastric ulcer with a visible vessel. Normal examined duodenum. Normal stomach. Biopsy. Recommendation: PPI infusion continually. Clear. - Time Spent with Patient Total time spent providing and/or coordinating discharge services: - Constitutional Vitals: Temp Pulse Resp BP Pulse Ox 97.6 F 71 16 112/67 91 08/18/16 10:58 08/18/16 10:58 08/18/16 10:58 08/18/16 10:58 08/18/16 10:58 General appearance: Present: A&O X 3, morbidly obese, pleasant, no acute distress, answers questions appropriately - Head Head exam: Present: atraumatic, normocephalic - Eye Eye exam: Present: PERRL, conjuntiva pink, sclera anicteric Pupils: Present: PERRL - Neck Neck exam general surgery: Present: supple, trachea midline. Absent: lymphadenopathy - Respiratory Respiratory exam: Present: CTAB. Absent: accessory muscle use, rales, respiratory distress, rhonchi, wheezes - Cardiovascular Cardiovascular exam: Present: RRR, +S1, +S2. Absent: diastolic murmur, gallop, rubs, systolic murmur - GI/Abdominal GI/Abdominal exam: Present: normal bowel sounds, soft, tenderness (epigastric), no peritoneal signs. Absent: distended - Extremities Exam Extremities exam: Present: warm, radial pulses palpable and symetrical. Absent : calf tenderness, cyanotic, pedal edema - Neurological Exam Neurological exam: Present: alert, CN II-XII intact, normal gait, oriented X3, no focal deficits, strengths equal and symetr throughout. Absent: pronater drift, facial droop, speech deficit - Skin Skin exam: Present: dry, intact, pallor, warm
== END 2016-08-18 14:15 | disposition home or self-care (01) ==
LOC: 3BNU 23:43 → EMEROO 23:43 → 3BNU 08-16 07:19
PROVIDERS: ADMIT Internal Medicine; ATTEND Nurse Practitioner Family
PROC: ENDOEBX (2016-08-16 14:35)